=== PATIENT | male | born 1970 | race Caucasian/White ===

== ENCOUNTER 2020-11-30 08:41 | Outpatient (REF) | payer BC, SELFPAY ==
[2020-11-30 11:03] LABS: MANUAL DIFF FLAG NO
[2020-11-30 11:15] LABS: Basophils Absolute Auto 0.1 X10*3/uL (0.0-0.2); Basophils Percent Auto 1.1 % (0-2); Eosinophils Absolute Auto 0.3 X10*3/uL (0.0-0.4); Eosinophils Percent Auto 4.5 % (0-4); Glucose Urine UA NEG (NEG); Hematocrit 47.1 % (42-52); Hemoglobin 15.4 g/dl (14.0-18.0); Imm Gran Abs Auto 0.02 X10*3/uL (0.00-0.03); Imm Gran Pct Auto 0.3 % (0.0-0.4); Leukocyte Esterase Urine NEG (NEG); Lymphocytes Absolute Auto 2.1 X10*3/uL (1.2-4.9); Lymphocytes Percent Auto 33.1 % (20-40); Mean Corpuscular HGB Conc 32.7 g/dl (31.0-36.0); Mean Corpuscular Hemoglobin 31.2 pg (27.0-33.0); Mean Corpuscular Volume 95.5 fL (80-98); Monocytes Absolute Auto 0.6 X10*3/uL (0.1-1.2); Monocytes Percent Auto 9.4 % (2-11); Neutrophils Absolute Auto 3.3 X10*3/uL (2.0-8.3); Neutrophils Percent Auto 51.6 % (45-73); Nitrite Urine NEG (NEG); Platelet Count 221 X10*3/uL (160-400); Red Blood Count 4.93 X10*6/uL (4.60-5.80); Red Cell Distribution Width 13.9 % (11.0-16.0); Specific Gravity - Urine >= 1.030 (1.005-1.025); Urine Blood NEG (NEG); Urine Ketones NEG (NEG); Urine Protein NEG (NEG-TRACE); White Blood Count 6.4 X10*3/uL (4.8-10.8)
[2020-11-30 11:16] LABS: Appearance Urine CLOUDY; Color Urine YELLOW
[2020-11-30 12:03] LABS: Alanine Aminotransferase 35 U/L (0-40); Albumin Level 4.3 g/dL (3.5-5.0); Alkaline Phosphatase 116 U/L (39-117); Anion Gap 15 (12-20); Aspartate Amino Transferase 22 U/L (5-37); Bilirubin Total 0.5 mg/dL (0.0-1.0); Blood Urea Nitrogen 13 mg/dL (9-16); Calcium 9.6 mg/dL (8.4-10.2); Carbon Dioxide 24 mmol/L (22-29); Chloride 105 mmol/L (96-108); Cholesterol 242 mg/dL; Estimated Glomerular Filt Rate > 60; Glucose Fasting 85 mg/dL (60-99); HDL Cholesterol 49 mg/dL; LDL Cholesterol Calculated 141 mg/dl; Potassium 4.1 mmol/L (3.3-5.1); Sodium 140 mmol/L (135-145); Triglycerides 262 mg/dL
== END 2020-11-30 08:42 | disposition home or self-care (01) ==
LOC: HO.HMGCLDS 08:41
PROVIDERS: PCP Nurse Practitioner Family; Visit Provider Nurse Practitioner Family
DX: T24.309 Burn of third degree of unspecified site of unspecified lower limb, except ankle and foot (principal)
CPT/HCPCS: 36415; 80053; 80061; 81003; 84443; 85025

== ENCOUNTER → 2021-08-19 13:59 | Outpatient (BNVA) | payer OTHER, SELFPAY | PROVIDERS: PCP Nurse Practitioner Family; Referring Provider Nurse Practitioner Family; Visit Provider Nurse Practitioner | DX: Z12.11 Encounter for screening for malignant neoplasm of colon (principal) | CPT/HCPCS: 99202 ==

== ENCOUNTER 2021-12-09 07:58 | Outpatient (REF) | payer OTHER, SELFPAY ==
[2021-12-09 11:17] LABS: MANUAL DIFF FLAG NO
[2021-12-09 11:34] LABS: Basophils Absolute Auto 0.1 X10*3/uL (0.0-0.2); Basophils Percent Auto 0.9 % (0-2); Eosinophils Absolute Auto 0.2 X10*3/uL (0.0-0.4); Eosinophils Percent Auto 1.9 % (0-4); Hematocrit 46.7 % (42.0-52.0); Hemoglobin 16.2 g/dl (14.0-18.0); Imm Gran Abs Auto 0.02 X10*3/uL (0.00-0.03); Imm Gran Pct Auto 0.3 % (0.0-0.4); Lymphocytes Absolute Auto 2.7 X10*3/uL (1.2-4.9); Lymphocytes Percent Auto 34.9 % (20-40); Mean Corpuscular HGB Conc 34.7 g/dl (31.0-36.0); Mean Corpuscular Hemoglobin 33.5 pg (27.0-33.0); Mean Corpuscular Volume 96.5 fL (80.0-98.0); Mean Platelet Volume 10.3 fL (9.4-12.4); Monocytes Absolute Auto 0.7 X10*3/uL (0.1-1.2); Monocytes Percent Auto 8.6 % (2-11); Neutrophils Absolute Auto 4.2 x10*3/uL (2.0-8.3); Neutrophils Percent Auto 53.4 % (45-73); Platelet Count 205 X10*3/uL (160-400); Red Blood Count 4.84 X10*6/uL (4.60-5.80); Red Cell Distribution Width 12.6 % (11.0-16.0); White Blood Count 7.8 X10*3/uL (4.8-10.8)
[2021-12-09 11:40] LABS: Appearance Urine Clear; Color Urine Yellow; Glucose Urine UA Negative (Negative); Leukocyte Esterase Urine Negative (Negative); Nitrite Urine Negative (Negative); PH 5.5 (5.0-9.0); Urine Blood Negative (Negative); Urine Ketones Trace mg/dL (Negative); Urine Protein Negative (Neg-Trace)
[2021-12-09 12:11] LABS: Amphetamine Screen Urine Not Detected (Not Detect); Barbiturates, Urine Not Detected (Not Detect); Benzodiazepines Screen Urine Not Detected (Not Detect); Cannabinoid Screen Urine Not Detected (Not Detect); Cocaine Screen Urine Not Detected (Not Detect); Fentanyl, urine Not Detected (Not Detect); Opiate Screen Urine POSITIVE (Not Detect); Phencyclidine Screen Urine Not Detected (Not Detect)
[2021-12-09 12:29] LABS: Alanine Aminotransferase 45 U/L (0-40); Albumin Level 4.3 g/dL (3.5-5.0); Alkaline Phosphatase 125 U/L (39-117); Anion Gap 16 (12-20); Aspartate Amino Transferase 25 U/L (5-37); Bilirubin Total 0.6 mg/dL (0.0-1.0); Blood Urea Nitrogen 11 mg/dL (9-16); Calcium 9.4 mg/dL (8.4-10.2); Carbon Dioxide 25 mmol/L (22-29); Chloride 104 mmol/L (96-108); Cholesterol 224 mg/dL; Estimated Glomerular Filt Rate > 60; Glucose Fasting 121 mg/dL (60-99); HDL Cholesterol 48 mg/dL; LDL Cholesterol Calculated 149 mg/dl; Potassium 4.3 mmol/L (3.3-5.1); Sodium 141 mmol/L (135-145); Triglycerides 136 mg/dL
[2021-12-09 12:31] LABS: Prostate Specific Antigen Scr 0.32 ng/mL (<0.05-4.0); TSH reflex Free T4 3.48 uIU/mL (0.32-4.0)
[2021-12-15 07:30] LABS: Oxycodone, Ur 5382; Oxymorphone, Ur 1020
[2021-12-15 07:31] LABS: Noroxycodone, Ur 8506
[2021-12-15 07:32] LABS: Codeine, Ur NEGATIVE; Hydrocodone, Ur NEGATIVE; Hydromorphone, Ur NEGATIVE; Morphine, Ur NEGATIVE; Norhydrocodone, Ur NEGATIVE
== END 2021-12-09 07:59 | disposition home or self-care (01) ==
LOC: HO.HMGCLDS 07:58
PROVIDERS: PCP Nurse Practitioner Family; Visit Provider Nurse Practitioner Family
DX: Z02.83 Encounter for blood-alcohol and blood-drug test (principal); Z12.5 Encounter for screening for malignant neoplasm of prostate; I10 Essential (primary) hypertension; T24.309 Burn of third degree of unspecified site of unspecified lower limb, except ankle and foot; T31.30 Burns involving 30-39% of body surface with 0% to 9% third degree burns
CPT/HCPCS: 80053; 80061; 80307; 80364; 80365; 81003; 84153; 84443; 85025

== ENCOUNTER 2021-12-14 10:00 | Day surgery (SDC) | payer OTHER, SELFPAY ==
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
[2021-12-14 10:10] VITALS: BMI 30.5
[2021-12-14] MEDS: Lactated Ringers 1,000 ML 100 ML IVCONT (10:12)
[2021-12-14 10:14] VITALS: BP 145/97; PULSE 77; RESP 18; TEMP 36.2; O2SAT 97
--- NOTE | 2021-12-14 10:25 | MHC.SHP ---
Pre-Procedural Eval Section A Date of Service: 12/14/21 Section B Chief Complaint: screening colonoscopy Details of Present Illness: 51y.o at average risk for CRC here for a screening colo. Current smoker 1.5PPD x 40y. Occ etOH. Relevant Family History (Specify if Yes): No Relevant Social History: Tobacco Use Present Medications: see Short Stay Collaborative assessment Medical History: Significant History (HTN) History of Previous Operations: Relevant previous surgery/procedure and date(s) (Inguinal hernia repair) Allergies: Allergies Allergy/AdvReac Type Severity Reaction Status Date / Time No Known Allergies Allergy Verified 12/09/21 10:37 Review of Systems Review of Systems Comment: 10 point ROS negative except as noted above. Exam Surgical H&P Exam: Normal: HEENT, Normal: Heart, Normal: Lungs, Normal: Extremities, Normal: Abdomen, Normal: Skin and Normal: Neurological Plan Diagnosis/Plan: Unchanged I have reviewed the history and physical and performed a pertinent physical examination on my patient. No changes have occurred unless specified.
--- NOTE | 2021-12-14 10:35 | P.OP_ITS ---
Operative Note Operative Note Date of Service: 12/14/21 Narrative: Procedure: Colonoscopy Indication: Screening Endoscopist: Aubree Mclean MD Anesthesia Provider: Dr Fela Estrada MD Anesthesia type: MAC Instrument: Olympus [id number]-H190L Consent: Indication, risks vs benefits, and alternatives were discussed with the patient who gave written informed consent to proceed. Monitoring: EKG, pulse, pulse oximetry and blood pressure were monitored throughout the procedure. Medications: Please see anesthesia flowsheet. Procedure: The patient was brought to the procedure room and placed in the left lateral decubitus position. IV medications were administered by the anesthesia provider in attendance. A digital rectal exam was performed which was normal. The colonoscope was then inserted through the anus and advanced through the colon to the cecum at 70 cm,and terminal ileum. Mucosa was carefully examined under high definition white light as the instrument was slowly withdrawn in a retrograde panoramic fashion. Retroflexion was performed in rectum. The procedure was not difficult. There were no immediate obvious complications. The quality of the prep was BBPS: 2+2+3 = adequate Withdrawal time 21 minutes. Limitations: No limitations. Findings: Mucosa: Normal to cecum and terminal ileum. Protruding lesions: * 1 sessile polyp of size 8 mm in cecum. The polyp was completely removed and retrieved. * 1 sessile polyp of size 2 mm in ascending colon. The polyp was completely removed and retrieved. * 3 sessile polyp of size 3-7 mm in sigmoid colon. The polyp was completely removed and retrieved. * Medium external hemorrhoids without stigmata of recent bleeding. Impression: 1. Normal colon mucosa 2. Total of 5 polyps removed from cecum, ascending and sigmoid colon. 3. External hemorrhoids Recommendations: - Follow path results. - Repeat colonoscopy in 3 years if all the polyps are adenomas.
[2021-12-14 11:20] VITALS: BP 111/67; PULSE 76; RESP 16; TEMP 36.4; O2SAT 99
[2021-12-14 11:35] VITALS: BP 116/75; PULSE 71; RESP 18; TEMP 36.4; O2SAT 97
== END 2021-12-14 11:54 | disposition home or self-care (01) ==
PROVIDERS: PCP Nurse Practitioner Family; Visit Provider Internal Medicine
PROC: 0DJD8ZZ Inspection of Lower Intestinal Tract, Via Natural or Artificial Opening Endoscopic (ICD-10-PCS; CPT 45378; principal; 2021-12-14 11:00)
DX: Z12.11 Encounter for screening for malignant neoplasm of colon (principal); D12.0 Benign neoplasm of cecum; D12.2 Benign neoplasm of ascending colon; D12.5 Benign neoplasm of sigmoid colon; K64.8 Other hemorrhoids; I10 Essential (primary) hypertension; E78.00 Pure hypercholesterolemia, unspecified; F17.210 Nicotine dependence, cigarettes, uncomplicated; Z79.899 Other long term (current) drug therapy
CPT/HCPCS: 45385; 88305

== ENCOUNTER → 2021-12-28 13:05 | Outpatient (BNVA) | payer OTHER, SELFPAY | PROVIDERS: PCP Nurse Practitioner Family; Visit Provider Nurse Practitioner | DX: D12.6 Benign neoplasm of colon, unspecified (principal) | CPT/HCPCS: 99212 ==

== ENCOUNTER 2022-01-11 08:56 | Outpatient (REF) | payer OTHER, SELFPAY ==
--- NOTE | ~2022-01-11 | US_ITS ---
EXAMINATION: US ABDOMEN COMPLETE CLINICAL INFORMATION: Abnormal levels or other serum enzymes. COMPARISON: None TECHNIQUE: Real-time imaging of the abdominal viscera. FINDINGS: PANCREAS: Normal. No focal mass or peripancreatic inflammatory change. ABDOMINAL AORTA: Not visualized. INFERIOR VENA CAVA: Visualized portions are normal. LIVER: The liver is normal in size. The liver contour is normal. There is homogeneously increased echogenicity consistent with fatty infiltration. No focal hepatic lesion. There is no intrahepatic biliary duct dilatation seen. GALLBLADDER: There are numerous polyps present measuring up to 6 mm in diameter. The gallbladder wall measures up to 4 mm in diameter without fluid within the wall. No pericholecystic inflammatory change. COMMON BILE DUCT: Normal in caliber measuring 0.3 cm in diameter. RIGHT KIDNEY: Normal. No hydronephrosis. No renal calculi or focal parenchymal lesions. The kidney measures 12.2 cm in maximum dimension. LEFT KIDNEY: Normal. No hydronephrosis. No renal calculi or focal parenchymal lesions. The kidney measures 13.0 cm in maximum dimension. SPLEEN: Normal. The spleen measures 10.7 cm in maximum dimension. FREE FLUID: None. US/US abdomen complete IMPRESSION: Gallbladder polyps. No evidence of acute cholecystitis. Fatty infiltration of the liver.
== END 2022-01-11 08:57 | disposition home or self-care (01) ==
LOC: HO.HMGCX 08:56
PROVIDERS: PCP Nurse Practitioner Family; Visit Provider Nurse Practitioner Family
DX: R74.8 Abnormal levels of other serum enzymes (principal)
CPT/HCPCS: 76700

== ENCOUNTER → 2022-06-29 08:43 | Outpatient (BNVA) | payer OTHER, SELFPAY | PROVIDERS: PCP Nurse Practitioner Family; Visit Provider Psychiatry & Neurology Neurology | DX: Z13.89 Encounter for screening for other disorder (principal) ==

== ENCOUNTER → 2022-08-01 13:06 | Outpatient (BNVA) | payer OTHER, SELFPAY | PROVIDERS: PCP Nurse Practitioner Family; Visit Provider Internal Medicine | DX: Z13.89 Encounter for screening for other disorder (principal) ==

== ENCOUNTER 2022-10-11 14:28 | Outpatient (REF) | payer OTHER, SELFPAY ==
--- NOTE | ~2022-10-11 | MR_ITS ---
EXAMINATION: MR LUMBAR SPINE WITHOUT CONTRAST CLINICAL INFORMATION: Leg pain. COMPARISON: None available. TECHNIQUE: MRI of the lumbar spine was obtained using routine sequences without contrast. FINDINGS: Normal anatomic alignment. Moderate degenerative disc disease at L5-S1. Mild degenerative disc disease from L1-L5. There is a T2 hyperintense annular fissure at L5-S1. Associated mild mixed Modic type discogenic endplate changes including minimal Modic type I discogenic edema at L1-L2 and L2-L3. Mild marrow edema within the posterior elements of L4 and L5 consistent with degenerative stress reaction. No additional suspicious marrow edema. The vertebral body heights are well-maintained. The conus medullaris terminates at the level of L1-L2. The distal spinal cord is normal in appearance. Minimal subcutaneous edema within the soft tissues of the back below the level of L2. No additional significant abnormalities of the paraspinal musculature. Limited evaluation of the intra-abdominal structures without significant abnormalities. The abdominal aorta is of normal contour and caliber. AXIAL SPINAL LEVELS: L1-L2: Shallow diffuse disc bulge. There is mild bilateral facet joint arthropathy. There is no neural foraminal stenosis. There is no spinal canal stenosis. L2-L3: Mild diffuse disc bulge. There is mild bilateral facet joint arthropathy. There is mild bilateral neural foraminal stenosis. There is no spinal canal stenosis. L3-L4: Shallow diffuse disc bulge. There is moderate left and mild right facet joint arthropathy. There is mild bilateral neural foraminal stenosis. There is narrowing of the subarticular zones with no overt spinal canal stenosis centrally exacerbated by prominent dorsal epidural lipomatous tissue. L4-L5: Mild diffuse disc bulge. There is moderate right worse than left facet joint arthropathy. There is moderate right and mild left neural foraminal stenosis. There is narrowing of the subarticular zones with mild spinal canal stenosis centrally exacerbated by prominent dorsal epidural lipomatous tissue. L5-S1: Mild diffuse disc bulge with superimposed small central disc protrusion. There is moderate bilateral facet joint arthropathy. There is moderate bilateral neural foraminal stenosis. There is narrowing of the subarticular zones with no overt spinal canal stenosis centrally. MR/MR lumbar spine wo con IMPRESSION: Mild to moderate multilevel degenerative spondyloarthropathy of the lumbar spine as described in detail above. Most notably, there is mild spinal canal stenosis at L4-L5. Narrowings of the subarticular zones from L3-S1. Moderate neural foraminal stenoses at L4-L5 and L5-S1.
== END 2022-10-11 14:29 | disposition home or self-care (01) ==
LOC: HO.MRI 14:28
PROVIDERS: PCP Nurse Practitioner Family; Visit Provider Internal Medicine
DX: M79.604 Pain in right leg (principal); M79.605 Pain in left leg
CPT/HCPCS: 72148

== ENCOUNTER 2022-10-19 11:10 | Day surgery (SDC) | payer OTHER, SELFPAY ==
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
--- NOTE | ~2022-10-19 | FL_ITS ---
EXAMINATION: XR FLUOROSCOPY WITH IMAGES CLINICAL INFORMATION: Spinal cord stimulation trial. STIM trial. COMPARISON: None available. TECHNIQUE: Fluoroscopy Supervised By: Dr. Willian Carr. Fluoroscopy Time: 2.2 minutes. Cumulative Dose: 63.1 mGy. DAP: 8.09 Gycm2. Images: 3. FINDINGS: There are 3 digital images obtained revealing a posterior electrode positioned along the superior endplate of T9 and second in the throat and along the T11 superior endplate vertebra.. FL/FL guidance in OR IMPRESSION: Fluoroscopy was provided to referring physician for pain management.
[2022-10-19 11:35] VITALS: BMI 32.8
[2022-10-19 11:54] VITALS: BP 137/99; PULSE 86; RESP 16; TEMP 36.1; O2SAT 96
[2022-10-19] MEDS: Lactated Ringers 1,000 ML 100 ML IVCONT (12:04)
[2022-10-19 12:07] LABS: Glucose, Whole Blood 154 mg/dL (60-115)
[2022-10-19 13:31] LABS: MRSA Nasal PCR NEGATIVE (Negative); SA Nasal PCR NEGATIVE (Negative)
[2022-10-19 14:56] VITALS: BP 128/73; PULSE 79; RESP 16; TEMP 36.7; O2SAT 98
[2022-10-19 15:25] VITALS: BP 147/79; PULSE 79; RESP 16; TEMP 36.4; O2SAT 98
--- NOTE | 2022-10-19 15:52 | MHC.SHP ---
Pre-Procedural Eval Section A Date of Service: 10/19/22 The patient is an INPATIENT: No Changes since office visit: Yes Patient answered all questions The History & Physical has been completed within 30 days and I have reviewed it.: Yes Section B Chief Complaint: Complex regional pain syndrome I of lower limb, bi Relevant Family History (Specify if Yes): No Relevant Social History: Other (specify) Present Medications: see Short Stay Collaborative assessment Medical History: Significant History History of Previous Operations: No relevant previous surgery Allergies: Allergies Allergy/AdvReac Type Severity Reaction Status Date / Time No Known Allergies Allergy Verified 08/01/22 13:11 Review of Systems Sugical H&P ROS: Negative: Constitution, Cardiovascular and Respiratory and Yes, Specify: Integumentary (Lower extremity swelling, unchanged) Exam Surgical H&P Exam: Normal: HEENT, Normal: Heart and Normal: Lungs Plan Diagnosis/Plan: Unchanged I have reviewed the history and physical and performed a pertinent physical examination on my patient. No changes have occurred unless specified. Proceed with lumbar spinal cord stimulation trial. Time Spent With Patient Time: Total time managing care of this patient today ____ minutes.
--- NOTE | 2022-10-19 15:53 | PM.OP ---
Brief Operative Note Date of Service: 10/19/22 Pre-op diagnosis: Complex regional pain syndrome of the lower extremities Post-op diagnosis: same Procedure: Lumbar spinal cord stimulation trial Implants: Nevro HFX spinal cord stimulation trial leads Surgeon: Willian Carr MD Anesthesia: MAC and local Was an Paper Testing Supervisor used for this Procedure?: No Estimated blood loss (mL): 3 Pathology: none sent Condition: stable Disposition: PACU
--- NOTE | 2022-10-19 15:54 | W.PM.OPN ---
Operative Note Operative Note Date of Service: 10/19/22 Narrative: Percutaneous Spinal Cord Stimulator Trial, Lumbar After obtaining written consent, pre-procedure blood pressure and heart rate were recorded and are in the nursing record for review. A peripheral IV was started. Antibiotics, cefazolin 2 gram, were given intraoperatively. The patient was placed in a prone position.? The patient was sedated by the anesthesiologist. The thoracolumbar area was widely prepped with ChloraPrep, allowed to dry and draped in sterile fashion. Fluoroscopy was used to identify the L1/L2 interlaminar spaces and appropriate needle insertion sites. The skin and subcutaneous tissue was anesthetized with 0.5% lidocaine mixed with 0.25% bupivacaine. Two separate 14 gauge coude epidural needles were then advanced from the skin in a paramedian approach to the epidural space opening at L1/L2 interspace, where loss of resistance was found using air. No paresthesias were elicited with needle placement. No CSF or heme was present upon needle placement. A guide wire was then used to confirm placement into the epidural space at each level under live fluoroscopy. A 1x8 stimulator lead wire was then threaded to the top of T9 in the midline position. The other lead was placed/tacked the bottom electrode was at the top of T12 and a slight right parasagittal position. The leads advanced dorsally.?The needles were then completely removed under live fluoroscopy. The stimulator wires were then secured with 0 Tycron sutures and sutured to the skin. The needle entry site was closed off exofen. The leads were reinforced in position using Steri-Strips and Mastisol. The site was covered with gauze and Tegaderm. The patient tolerated the procedure well and no complications were encountered. Following the procedure the patient's vital signs were stable. The patient was discharged home in good condition after being given discharge instructions. Time Out: Immediately prior to the procedure, the following was verbally confirmed that there is a signed consent form and that the correct patient, planned procedure, site and side are consistent with documentation and that necessary equipment and/or blood products are available prior to the start of the case. Complications: none EBL: <5 cc
== END 2022-10-19 15:31 | disposition home or self-care (01) ==
PROVIDERS: Registered Nurse Emergency; PCP Nurse Practitioner Family; Visit Provider Internal Medicine
PROC: (CPT 63650; principal; 2022-10-19 12:50)
DX: G90.523 Complex regional pain syndrome I of lower limb, bilateral (principal); I10 Essential (primary) hypertension
CPT/HCPCS: 63650 ×2; 82947; 87640; 87641; C1897; J0690; J2250

== ENCOUNTER → 2022-10-19 11:10 | Outpatient (BNV) | payer OTHER, SELFPAY | PROVIDERS: PCP Nurse Practitioner Family; Visit Provider Internal Medicine | DX: Z00.00 Encounter for general adult medical examination without abnormal findings (principal) | CPT/HCPCS: 63650 ==

== ENCOUNTER 2022-10-25 09:25 | Outpatient (AMB) | payer OTHER, SELFPAY ==
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
[2022-10-25 09:32] VITALS: BP 157/93; PULSE 83; O2SAT 95; BMI 33.3
== END 2022-10-25 10:02 | disposition home or self-care (01) ==
PROVIDERS: PCP Nurse Practitioner Family; Visit Provider Nurse Practitioner Family
DX: M79.606 Pain in leg, unspecified (principal); G89.4 Chronic pain syndrome
CPT/HCPCS: 99214

== ENCOUNTER → 2022-10-25 09:25 | Outpatient (BNVA) | payer OTHER, SELFPAY | PROVIDERS: PCP Nurse Practitioner Family; Visit Provider Nurse Practitioner Family ==

== ENCOUNTER 2022-12-21 11:01 | Day surgery (SDC) | payer OTHER, SELFPAY ==
[2022-12-19 09:47] VITALS: BMI 33.2
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
--- NOTE | ~2022-12-21 | FL_ITS ---
EXAMINATION: XR FLUOROSCOPY WITH IMAGES CLINICAL INFORMATION: Spinal cord stimulation implant. COMPARISON: None available. TECHNIQUE: Fluoroscopy Supervised By: Dr. Willian Carr. Fluoroscopy Time: 2.0 minutes. Cumulative Dose: 35.3 mGy. DAP: 5.49 Gycm2. Images: 5. FINDINGS: Images demonstrate spinal stimulator lower thoracic and upper lumbar spinal canal with tip at the T9 vertebral body level. Battery right pelvis. FL/FL guidance in OR IMPRESSION: Fluoroscopy guidance for spinal cord stimulation implant.
[2022-12-21 11:37] VITALS: BMI 33.2
[2022-12-21 11:47] VITALS: BP 142/85; PULSE 88; RESP 18; TEMP 36.3; O2SAT 95
[2022-12-21] MEDS: Lactated Ringers 1,000 ML 100 ML IVCONT (12:03)
[2022-12-21 13:44] LABS: MRSA Nasal PCR NEGATIVE (Negative); SA Nasal PCR NEGATIVE (Negative)
--- NOTE | 2022-12-21 16:24 | MHC.SHP ---
Pre-Procedural Eval Section A Date of Service: 12/21/22 The patient is an INPATIENT: No Changes since office visit: Yes Patient answered all questions The History & Physical has been completed within 30 days and I have reviewed it.: Yes Section B Chief Complaint: Complex regional pain syndrome I of lower limb, Relevant Family History (Specify if Yes): No Relevant Social History: None Present Medications: see Short Stay Collaborative assessment Medical History: No relevant PMH History of Previous Operations: No relevant previous surgery Allergies: Allergies Allergy/AdvReac Type Severity Reaction Status Date / Time No Known Allergies Allergy Verified 10/25/22 09:31 Review of Systems Sugical H&P ROS: Negative: Constitution, Cardiovascular and Respiratory Exam Surgical H&P Exam: Normal: HEENT, Normal: Heart and Normal: Lungs Plan Diagnosis/Plan: Unchanged I have reviewed the history and physical and performed a pertinent physical examination on my patient. No changes have occurred unless specified. Time Spent With Patient Time: Total time managing care of this patient today ____ minutes.
--- NOTE | 2022-12-21 16:25 | P.BOP_ITS ---
Brief Operative Note Date of Service: 12/21/22 Pre-op diagnosis: Complex regional pain syndrome of the lower extremities Post-op diagnosis: same Procedure: Lumbar spinal cord stimulator implant Implants: Nevro HFX omnia spinal cord stimulator system Surgeon: Willian Carr MD Anesthesia: MAC Was an Entertainer [employer] Comic used for this Procedure?: No Estimated blood loss (mL): 10 Pathology: none sent Condition: stable Disposition: PACU
--- NOTE | 2022-12-21 16:27 | W.PM.OPN ---
Operative Note Operative Note Date of Service: 12/21/22 Narrative: Lumbar SCS Implant After proper identification, the patient was brought to the operating room. After prone positioning, patient was sedated under anesthesia. Care was taken during positioning to protect and pad all pressure points. Cefazolin 2gm was given as preoperative antibiotic prophylaxis. The back was prepped and draped in the usual sterile fashion using Chloroprep. The fluoroscope unit was sterilely draped and brought into field, the vertebral target and the L1/L2 interspace was localized with fluoroscopy after the skin was anesthetized with 0.25% bupivicaine with 1:200,000 epinephrine and 1% lidocaine using a 25-gauge needle. A 6 cm incision was then made in the midline back with a 15 blade between the L2 and L3 spinous processes. Electrocautery was used to dissect down to the prevertebral fascia. Two 14-gauge introducer Epimed needles were advanced using AP and contralateral oblique fluoroscopy views to the target interspace on either side of the inferior spinous process. Upon loss of resistance, the left electrode was threaded up to the top of T9 vertebral body. The right electrode was threaded such that the bottom electrode was at the top of T12 vertebral body. With the needles covering the leads, we placed 2 sets of Tycron sutures per electrode for the anchor stitches. We then backed out the needle under live fluoroscopy, verifying that the electrodes were in the correct position and we then used the locking anchors to secure the electrodes down to the prevertebral fascia, tying them down with the Tycron sutures. At this point, a pocket for the generator was made in the left iliac fossa. With the skin and subcutaneous tissues anesthetized with 0.25% bupivicaine with 1:200,000 epinephrine and 1% lidocaine, a horizontal 2-inch incision was made using a 15 blade and combination of sharp dissection, blunt dissection and electrocautery was used. A pocket was created about half an inch below the skin. The pocket was then irrigated with normal saline containing vancomycin. Hemostasis was attained with electrocautery. We then tunneled the electrodes from the back into the pocket using the tunneling device. The electrodes were then connected to the generator. A single Tycron suture was thrown across the floor of the pocket and through the medial anchor hold of the generator. After interrogation with impedance check the generator was placed into the subcutaneous pocket and the anchoring suture tied. Care was taken not to get fluid in the generator connector block. The excess lead was enclosed beneath the generator creating a loop of strain relief as well. The neurostimulator generator was placed parallel to the skin at a depth of half an inch along for successful telemetry and impedence. The pocket was reirrigated and closed with the generator name facing out. Final electronic analysis was performed to ensure proper functioning. Positioning of the leads were rechecked and confirmed with fluoroscopy and images saved. Both incisions were closed with a deep layer of 2-0 Vicryl sutures, the deep dermal layer with 3-0 Vicryl sutures, simple interrupted and a running 4-0 Monocryl for the subcutaneous layer. We then secured the incision with Dermabond, steristrips, telfa and tegaderm over both incisions. The patient tolerated the procedure well. The patient was then flipped back into the supine position, woken up and brought to the PACU in stable condition. Complications: None EBL: 10 mL
[2022-12-21 16:30] VITALS: BP 156/107; PULSE 89; RESP 14; TEMP 36.1; O2SAT 96
[2022-12-21 16:45] VITALS: BP 159/111; PULSE 86; RESP 16; TEMP 36.2; O2SAT 96
[2022-12-21] MEDS: Acetaminophen 1,000 MG/100 ML PIGGYBACK 400 MG IV (16:47)
[2022-12-21 16:57] VITALS: BP 156/96; PULSE 88; RESP 16; O2SAT 96
== END 2022-12-21 17:09 | disposition home or self-care (01) ==
PROVIDERS: Registered Nurse Emergency; PCP Nurse Practitioner Family; Visit Provider Internal Medicine
PROC: (CPT 63685; principal; 2022-12-21 12:30)
DX: G90.523 Complex regional pain syndrome I of lower limb, bilateral (principal); G89.4 Chronic pain syndrome; G62.9 Polyneuropathy, unspecified; M79.662 Pain in left lower leg; M79.661 Pain in right lower leg; M25.572 Pain in left ankle and joints of left foot; M25.571 Pain in right ankle and joints of right foot; Z87.828 Personal history of other (healed) physical injury and trauma; Z94.5 Skin transplant status; I10 Essential (primary) hypertension; E78.00 Pure hypercholesterolemia, unspecified; K76.0 Fatty (change of) liver, not elsewhere classified; Z79.899 Other long term (current) drug therapy; F17.210 Nicotine dependence, cigarettes, uncomplicated
CPT/HCPCS: 63685; 63650 ×2; 87640; 87641; C1713; C1778; C1787; J0131; J0690; J2250; J2795; J3010; J3370

== ENCOUNTER → 2022-12-21 11:01 | Outpatient (BNV) | payer OTHER, SELFPAY | PROVIDERS: PCP Nurse Practitioner Family; Visit Provider Internal Medicine | DX: G90.523 Complex regional pain syndrome I of lower limb, bilateral (principal) | CPT/HCPCS: 63650; 63685 ==

== ENCOUNTER 2022-12-27 09:26 | Outpatient (AMB) | payer OTHER, SELFPAY ==
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
[2022-12-27 09:33] VITALS: BP 150/87; PULSE 84; O2SAT 97; BMI 33.2
== END 2022-12-27 09:40 | disposition home or self-care (01) ==
PROVIDERS: PCP Nurse Practitioner Family; Visit Provider Nurse Practitioner Family
DX: M79.606 Pain in leg, unspecified (principal); G89.4 Chronic pain syndrome
CPT/HCPCS: 99024

== ENCOUNTER → 2022-12-27 09:26 | Outpatient (BNVA) | payer OTHER, SELFPAY | PROVIDERS: PCP Nurse Practitioner Family; Visit Provider Nurse Practitioner Family ==

== ENCOUNTER 2023-01-03 11:00 | Outpatient (AMB) | payer OTHER, SELFPAY ==
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
[2023-01-03 11:22] VITALS: BP 150/86; PULSE 87; O2SAT 98; BMI 33.1
== END 2023-01-03 11:34 | disposition home or self-care (01) ==
PROVIDERS: PCP Nurse Practitioner Family; Visit Provider Nurse Practitioner Family
DX: M79.606 Pain in leg, unspecified (principal); G89.4 Chronic pain syndrome
CPT/HCPCS: 99213

== ENCOUNTER → 2023-01-03 11:00 | Outpatient (BNVA) | payer OTHER, SELFPAY | PROVIDERS: PCP Nurse Practitioner Family; Visit Provider Nurse Practitioner Family ==

== ENCOUNTER 2023-02-27 11:24 | Outpatient (AMB) | payer OTHER, SELFPAY ==
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
[2023-02-27 11:46] VITALS: BP 112/74; PULSE 69; O2SAT 96; BMI 32.4
== END 2023-02-27 12:23 | disposition home or self-care (01) ==
PROVIDERS: PCP Nurse Practitioner Family; Visit Provider Nurse Practitioner Family
DX: Z00.00 Encounter for general adult medical examination without abnormal findings (principal); Z12.5 Encounter for screening for malignant neoplasm of prostate
CPT/HCPCS: 99396

== ENCOUNTER 2023-06-19 08:12 | Outpatient (REF) | payer OTHER, SELFPAY ==
[2023-06-19 11:07] LABS: Appearance Urine Clear; Color Urine Dark Yellow; Glucose Urine UA Negative (Negative); Leukocyte Esterase Urine Negative (Negative); Nitrite Urine Negative (Negative); PH 5.5 (5.0-9.0); Urine Blood Negative (Negative); Urine Ketones Negative (Negative); Urine Protein Negative (Neg-Trace)
[2023-06-19 11:10] LABS: MANUAL DIFF FLAG NO
[2023-06-19 11:29] LABS: Basophils Absolute Auto 0.1 X10*3/uL (0.0-0.2); Basophils Percent Auto 1.2 % (0-2); Eosinophils Absolute Auto 0.1 X10*3/uL (0.0-0.4); Eosinophils Percent Auto 1.9 % (0-4); Hematocrit 50.5 % (42.0-52.0); Hemoglobin 17.2 g/dl (14.0-18.0); Imm Gran Abs Auto 0.02 X10*3/uL (0.00-0.03); Imm Gran Pct Auto 0.3 % (0.0-0.4); Lymphocytes Absolute Auto 2.7 X10*3/uL (1.2-4.9); Mean Corpuscular HGB Conc 34.1 g/dl (31.0-36.0); Mean Corpuscular Hemoglobin 32.8 pg (27.0-33.0); Mean Corpuscular Volume 96.4 fL (80.0-98.0); Mean Platelet Volume 9.8 fL (9.4-12.4); Monocytes Absolute Auto 0.5 X10*3/uL (0.1-1.2); Monocytes Percent Auto 7.9 % (2-11); Neutrophils Absolute Auto 2.5 x10*3/uL (2.0-8.3); Neutrophils Percent Auto 42.7 % (45-73); Platelet Count 231 X10*3/uL (160-400); Red Blood Count 5.24 X10*6/uL (4.60-5.80); Red Cell Distribution Width 12.1 % (11.0-16.0); White Blood Count 5.9 X10*3/uL (4.8-10.8)
[2023-06-19 11:52] LABS: Alanine Aminotransferase 44 U/L (0-40); Alkaline Phosphatase 137 U/L (39-117); Anion Gap 13 (12-20); Aspartate Amino Transferase 24 U/L (5-37); Bilirubin Total 0.6 mg/dL (0.0-1.0); Blood Urea Nitrogen 8 mg/dL (9-16); Carbon Dioxide 26 mmol/L (22-29); Chloride 105 mmol/L (96-108); Cholesterol 183 mg/dL (<200); Estimated Glomerular Filt Rate > 60; Glucose Fasting 143 mg/dL (60-99); HDL Cholesterol 37 mg/dL (>40); LDL Cholesterol Calculated 112 mg/dL (<100); Potassium 3.9 mmol/L (3.3-5.1); Sodium 140 mmol/L (135-145); Triglycerides 170 mg/dL (<150)
[2023-06-19 11:54] LABS: Prostate Specific Antigen Scr 0.39 ng/mL (<0.05-4.0)
[2023-06-19 11:59] LABS: TSH reflex Free T4 3.94 uIU/mL (0.32-4.0)
== END 2023-06-19 08:13 | disposition home or self-care (01) ==
LOC: HO.HMGCLDS 08:12
PROVIDERS: PCP Nurse Practitioner Family; Visit Provider Nurse Practitioner Family
DX: Z00.00 Encounter for general adult medical examination without abnormal findings (principal); Z12.5 Encounter for screening for malignant neoplasm of prostate; Z13.6 Encounter for screening for cardiovascular disorders
CPT/HCPCS: 36415; 80053; 80061; 81003; 84153; 84443; 85025

== ENCOUNTER 2023-08-08 10:29 | Outpatient (AMB) | payer OTHER, SELFPAY ==
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
[2023-08-08 10:49] VITALS: BP 130/82; PULSE 78; O2SAT 98; BMI 32.8
== END 2023-08-08 11:36 | disposition home or self-care (01) ==
PROVIDERS: PCP Nurse Practitioner Family; Visit Provider Nurse Practitioner Family
DX: T31.30 Burns involving 30-39% of body surface with 0% to 9% third degree burns (principal); M79.606 Pain in leg, unspecified; R73.01 Impaired fasting glucose; R74.8 Abnormal levels of other serum enzymes; F17.200 Nicotine dependence, unspecified, uncomplicated
CPT/HCPCS: 99213

== ENCOUNTER 2024-03-12 09:12 | Outpatient (REF) | payer OTHER, SELFPAY ==
[2024-03-12 13:02] LABS: MANUAL DIFF FLAG NO
[2024-03-12 13:09] LABS: Basophils Absolute Auto 0.1 X10*3/uL (0.0-0.2); Basophils Percent Auto 1.1 % (0-2); Eosinophils Absolute Auto 0.1 X10*3/uL (0.0-0.4); Eosinophils Percent Auto 1.2 % (0-4); Hemoglobin 17.2 g/dl (14.0-18.0); Imm Gran Abs Auto 0.03 X10*3/uL (0.00-0.03); Imm Gran Pct Auto 0.4 % (0.0-0.4); Mean Corpuscular HGB Conc 34.4 g/dl (31.0-36.0); Mean Corpuscular Hemoglobin 32.6 pg (27.0-33.0); Mean Corpuscular Volume 94.9 fL (80.0-98.0); Mean Platelet Volume 10.2 fL (9.4-12.4); Monocytes Absolute Auto 0.6 X10*3/uL (0.1-1.2); Monocytes Percent Auto 6.8 % (2-11); Neutrophils Absolute Auto 5.8 x10*3/uL (2.0-8.3); Neutrophils Percent Auto 67.5 % (45-73); Platelet Count 196 X10*3/uL (160-400); Red Blood Count 5.27 X10*6/uL (4.60-5.80); White Blood Count 8.6 X10*3/uL (4.8-10.8)
[2024-03-12 13:20] LABS: Appearance Urine Turbid; Color Urine Yellow; Glucose Urine UA Negative (Negative); Leukocyte Esterase Urine Negative (Negative); Nitrite Urine Negative (Negative); PH 5.5 (5.0-9.0); Specific Gravity - Urine >= 1.030 (1.005-1.025); Urine Blood Negative (Negative); Urine Ketones Negative (Negative); Urine Protein Negative (Neg-Trace)
[2024-03-12 13:33] LABS: Alanine Aminotransferase 46 U/L (0-40); Albumin Level 4.2 g/dL (3.5-5.0); Alkaline Phosphatase 109 U/L (39-117); Anion Gap 14 (12-20); Aspartate Amino Transferase 29 U/L (5-37); Bilirubin Total 0.7 mg/dL (0.0-1.0); Blood Urea Nitrogen 9 mg/dL (9-16); Calcium 8.8 mg/dL (8.4-10.2); Carbon Dioxide 25 mmol/L (22-29); Chloride 105 mmol/L (96-108); Cholesterol 175 mg/dL (<200); Estimated Glomerular Filt Rate > 60; Glucose Fasting 144 mg/dL (60-99); HDL Cholesterol 43 mg/dL (>40); Iron 190 mcg/dL (45-160); LDL Cholesterol Calculated 105 mg/dL (<100); Percent Iron Saturation 70 % (15-50); Potassium 4.2 mmol/L (3.3-5.1); Sodium 140 mmol/L (135-145); Total Iron Binding Capacity 272 mcg/dL (228-428); Triglycerides 136 mg/dL (<150); Unsaturated Iron Binding 82 ug/dL
[2024-03-12 13:36] LABS: Ferritin 318 ng/mL (20-250); TSH reflex Free T4 2.04 uIU/mL (0.32-4.0)
[2024-03-12 13:37] LABS: Estimated Average Glucose 146 mg/dL; Hemoglobin A1C 211.1909 umol/L; Hemoglobin A1c % 6.7 % (<6.0); Total Hemoglobin (HGBA1C) 4253.6497 umol/L
[2024-03-12 13:50] LABS: Folate 4.7 ng/mL (> or = 4.0); Vitamin B12 507 pg/mL (200-900)
[2024-03-12 13:56] LABS: Gamma Glutamyl Transpeptidase 45 U/L (11-51)
[2024-03-17 13:14] LABS: Testosterone, Total 451 ng/dL (250-1100)
[2024-03-18 19:13] LABS: Alk.Phos Iso. Macrohepatic 0 % (<=0); Alk.Phos Isoenzymes Bone 23 % (28-66); Alk.Phos Isoenzymes Intest 16 % (1-24); Alk.Phos Isoenzymes Liver 61 % (25-69); Alk.Phos Isoenzymes Placental 0 % (<=0); Alk.Phos Isoenzymes Total 110 U/L (35-144)
== END 2024-03-12 09:13 | disposition home or self-care (01) ==
LOC: HO.HMGCLDS 09:12
PROVIDERS: PCP Nurse Practitioner Family; Visit Provider Nurse Practitioner Family
DX: E83.19 Other disorders of iron metabolism (principal); R79.89 Other specified abnormal findings of blood chemistry; T24.309 Burn of third degree of unspecified site of unspecified lower limb, except ankle and foot; T31.30 Burns involving 30-39% of body surface with 0% to 9% third degree burns; E11.9 Type 2 diabetes mellitus without complications; R35.1 Nocturia; H61.23 Impacted cerumen, bilateral; F17.210 Nicotine dependence, cigarettes, uncomplicated
CPT/HCPCS: 36415; 69209; 80053; 80061; 81003; 82607; 82728; 82746; 82977; 83036; 83540; 84080; 84402; 84403; 84443; 85025; 96127

== ENCOUNTER 2024-03-12 15:25 | Outpatient (AMB) | payer OTHER, SELFPAY ==
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
[2024-03-12 15:43] VITALS: BP 130/80; PULSE 76; O2SAT 98; BMI 31.9
== END 2024-03-12 17:00 | disposition home or self-care (01) ==
PROVIDERS: PCP Nurse Practitioner Family; Visit Provider Nurse Practitioner Family
DX: Z00.00 Encounter for general adult medical examination without abnormal findings (principal); E83.19 Other disorders of iron metabolism; E11.9 Type 2 diabetes mellitus without complications; T24.309 Burn of third degree of unspecified site of unspecified lower limb, except ankle and foot; T31.30 Burns involving 30-39% of body surface with 0% to 9% third degree burns; R35.1 Nocturia; F17.200 Nicotine dependence, unspecified, uncomplicated; H61.22 Impacted cerumen, left ear

== ENCOUNTER → 2024-04-18 14:27 | Outpatient (BNVA) | payer OTHER, SELFPAY | PROVIDERS: PCP Nurse Practitioner Family ==

== ENCOUNTER 2024-05-13 12:51 | Outpatient (AMB) | payer OTHER, SELFPAY ==
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
== END 2024-05-13 14:11 | disposition home or self-care (01) ==
PROVIDERS: PCP Nurse Practitioner Family; Visit Provider Nurse Practitioner Family
DX: R35.1 Nocturia (principal); N39.43 Post-void dribbling; R39.12 Poor urinary stream; Z13.9 Encounter for screening, unspecified
CPT/HCPCS: 99204

== ENCOUNTER → 2024-05-13 12:51 | Outpatient (BNVA) | payer OTHER, SELFPAY | PROVIDERS: PCP Nurse Practitioner Family; Visit Provider Nurse Practitioner Family | DX: R35.1 Nocturia (principal); N39.43 Post-void dribbling; R39.12 Poor urinary stream | CPT/HCPCS: 51798; 81003 ==

== ENCOUNTER 2024-05-31 08:42 | Outpatient (REF) | payer OTHER, SELFPAY ==
--- NOTE | ~2024-05-31 | MM_ITS ---
EXAMINATION: DXA BONE DENSITY AXIAL HISTORY: Abnormal serum enzyme levels TECHNIQUE: [employer] Dual energy absorptiometry (DEXA) of the lumbar spine, total left hip, and femoral neck was performed. COMPARISON: There are no prior studies for comparison. FINDINGS: The bone mineral density of the lumbar spine is 1.309 with a T-score of 0.9, and a Z-score of 0.4. The bone mineral density of the left total hip is 1.033 with a T-score of -0.5, and a Z-score of -0.5. The bone mineral density of the left femoral neck is 0.957 with a T-score of -0.9, and a Z-score of -0.6. MM/XR DEXA axial skeleton IMPRESSION: Based on bone mineral density, and according to World Health Organization (WHO) criteria, the diagnosis is consistent with normal bone mineral density. All bone density values are in grams per centimeter squared (g/cm2). Statistically, 68% of repeat scans fall within 1 SD (+/- 0.010 g/cm2 for AP spine L1-L4) and 1 SD (+/- 0.012 g/cm2 for femur total) FRAX is a trademark of the [employer] [facility] Met[facility] [employer] Disease, a World Health Organization (WHO) Collaborating Center. Electronically signed by: Brennan Parra MD 05/31/2024 09:41 AM [facility] [place], [place]
--- OUTSIDE RECORDS SUMMARY | 2024-05-31 08:59 | XMS_ITS | Clinical Summary ---
Author Organization [facility] Address [address] [place] [address] Care Team Providers Care Acting Section Chief Name Role Phone Unavailable Primary Care Provider Unavailabl e Social History Tobacco Use Types Packs/Day Years Used Date Smoking Tobacco: Never Assessed Sex and Gender Information Value Date Recorded Sex Assigned at Not on file Gender Identity Not on file Sexual Orientation Not on file Plan of Treatment Health Maintenance Due Date Last Done Comments Hepatitis C Virus Screening 1970 HIV Screening 1983 DTaP/Tdap/Td Vaccines (1 - Tdap) 1989 Hepatitis B Vaccines (1 of 3 - 19+ 3-dose series) 1989 Pneumococcal Vaccines 50+ (1 of 1 - PCV) 2020 Zoster (Shingles) Vaccine (1 of 2) 2020 COVID-19 Vaccine ( - 2023-2 5 season) 2023 Pneumococcal Vaccine: Pediat sonu (0-5 Years) and At-Risk Patients (6 to 49 Years) Aged Out No longer eligible b ased on patient's age to complete this topic
== END 2024-05-31 08:43 | disposition home or self-care (01) ==
LOC: HO.MAMMO 08:42
PROVIDERS: PCP Nurse Practitioner Family; Visit Provider Nurse Practitioner Family
DX: Z13.820 Encounter for screening for osteoporosis (principal); R74.8 Abnormal levels of other serum enzymes
CPT/HCPCS: 77080

== ENCOUNTER → 2024-05-31 08:45 | Outpatient (BNV) | payer OTHER, SELFPAY | PROVIDERS: PCP Nurse Practitioner Family; Visit Provider Radiology Diagnostic Radiology | DX: E28.39 Other primary ovarian failure (principal) | CPT/HCPCS: 77080 ==

== ENCOUNTER 2024-06-11 15:30 | Outpatient (AMB) | payer OTHER, SELFPAY ==
[2024-06-11 15:40] VITALS: BP 130/82; PULSE 93; TEMP 36.6; O2SAT 95; BMI 32.7
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
--- OUTSIDE RECORDS SUMMARY | 2024-06-11 18:52 | XMS_ITS | Clinical Summary ---
Author Organization [facility] Address [address] [place] [address] Care Team Providers Care Intensive Care Medicine Specialist Name Role Phone Unavailable Primary Care Provider [...]
== END 2024-06-11 16:17 | disposition home or self-care (01) ==
PROVIDERS: PCP Nurse Practitioner Family; Visit Provider Nurse Practitioner Family
DX: F17.210 Nicotine dependence, cigarettes, uncomplicated (principal); T31.30 Burns involving 30-39% of body surface with 0% to 9% third degree burns; E11.9 Type 2 diabetes mellitus without complications; E83.19 Other disorders of iron metabolism; Z13.9 Encounter for screening, unspecified

== ENCOUNTER → 2024-06-11 15:35 | Outpatient (BNVA) | payer OTHER, SELFPAY | PROVIDERS: PCP Nurse Practitioner Family; Visit Provider Nurse Practitioner Family | DX: E11.9 Type 2 diabetes mellitus without complications (principal); E83.19 Other disorders of iron metabolism; T24.302D Burn of third degree of unspecified site of left lower limb, except ankle and foot, subsequent encounter; T24.301D Burn of third degree of unspecified site of right lower limb, except ankle and foot, subsequent encounter; T31.30 Burns involving 30-39% of body surface with 0% to 9% third degree burns; X08.8XXD Exposure to other specified smoke, fire and flames, subsequent encounter; F17.210 Nicotine dependence, cigarettes, uncomplicated | CPT/HCPCS: 83036; 96127 ==

== ENCOUNTER 2024-07-05 10:55 | Outpatient (AMB) | payer OTHER, SELFPAY ==
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
== END 2024-07-05 14:44 | disposition home or self-care (01) ==
LOC: HO.HPS 10:56
PROVIDERS: PCP Nurse Practitioner Family; Referring Provider Nurse Practitioner Family; Visit Provider Physician Assistant Medical
DX: F17.210 Nicotine dependence, cigarettes, uncomplicated (principal)
CPT/HCPCS: G0296

== ENCOUNTER 2024-07-05 11:15 | Outpatient (REF) | payer OTHER, SELFPAY ==
--- OUTSIDE RECORDS SUMMARY | 2024-07-05 13:09 | XMS_ITS | Clinical Summary ---
Author Organization [facility] Address [address] [place] [address] Care Team Providers Care Lead Caster Name Role Phone Unavailable Primary Care Provider [...] (1 of 3 - 19+ 3-dose series) 03/03 Pneumococcal Vaccines 50+ (1 of 1 - PCV) 2020 Zoster (Shingles) Vaccine (1 of 2) 2020 COVID-19 Vaccine (1 - 2023- season) 2023
== END 2024-07-05 11:16 | disposition home or self-care (01) ==
LOC: HO.CT 11:15
PROVIDERS: PCP Nurse Practitioner Family; Visit Provider Physician Assistant Medical
DX: Z12.2 Encounter for screening for malignant neoplasm of respiratory organs (principal); F17.210 Nicotine dependence, cigarettes, uncomplicated
CPT/HCPCS: 71271

== ENCOUNTER → 2024-07-05 11:19 | Outpatient (BNV) | payer OTHER, SELFPAY | PROVIDERS: PCP Nurse Practitioner Family; Visit Provider Nuclear Medicine | DX: F17.210 Nicotine dependence, cigarettes, uncomplicated (principal) | CPT/HCPCS: 71271 ==

== ENCOUNTER 2024-08-01 12:57 | Outpatient (REF) | payer OTHER, SELFPAY ==
--- NOTE | ~2024-08-01 | US_ITS ---
CLINICAL HISTORY: R35.1 - Nocturia US Renal Comparison: None Findings: Right kidney normal size and echotexture, 11.9 cm length. Left kidney normal size and echotexture, 12.2 cm length. No hydronephrosis of either kidney. Normal color Doppler. IMPRESSION: 1. Normal kidneys. This document has been electronically signed by: Nahid Nixon MD on 08/01/2024 22:03:51
--- OUTSIDE RECORDS SUMMARY | 2024-08-01 15:25 | XMS_ITS | Clinical Summary ---
Author Organization [facility] Address [address] [place] [address] Care Team Providers Care Urology Physician Name Role Phone Unavailable Primary Care Provider Unavailabl e Social History Tobacco Use Types Packs/Day Years Used Date Smoking Tobacco: Never Assessed Comments Unknown Sex and Gender Information Value Date Recorded Sex Assigned at Not on file Legal Sex Female 7:12 AM EDT Gender Identity Not on file Sexual Orientation [...] of 2) 2020 COVID-19 Vaccine (1 - season) 2023
[2024-08-01 16:26] LABS: Alanine Aminotransferase 53 U/L (0-40); Albumin Level 4.3 g/dL (3.5-5.0); Alkaline Phosphatase 108 U/L (39-117); Anion Gap 12 (12-20); Aspartate Amino Transferase 30 U/L (5-37); Bilirubin Total 0.5 mg/dL (0.0-1.0); Blood Urea Nitrogen 11 mg/dL (9-16); Calcium 9.3 mg/dL (8.4-10.2); Carbon Dioxide 26 mmol/L (22-29); Chloride 105 mmol/L (96-108); Estimated Glomerular Filt Rate > 60; Glucose Random 125 mg/dL (60-115); Magnesium 2.3 mg/dL (1.6-2.6); Phosphorus 2.7 mg/dL (2.7-4.5); Potassium 3.7 mmol/L (3.3-5.1); Sodium 139 mmol/L (135-145)
[2024-08-01 16:45] LABS: Prostate Specific Antigen 0.36 ng/mL (<0.05-4.0)
[2024-08-01 16:52] LABS: Creatinine Urine 350.54 mg/dL; Microalbum/Creatinine Ratio Ur 7.7 ug/mg cr (<30)
[2024-08-01 16:55] LABS: Parathyroid Hormone Intact 83.1 pg/mL (8.7-77.1)
[2024-08-01 17:00] LABS: Folate 6.5 ng/mL (> or = 4.0); Vitamin B12 402 pg/mL (200-900)
[2024-08-02 11:48] LABS: Ceruloplasmin 23 mg/dL (14-30)
[2024-08-02 15:59] LABS: Calcium, Ionized 5.1 mg/dL (4.7-5.5)
[2024-08-04 23:12] LABS: Zinc 72 mcg/dL (60-130)
[2024-08-05 14:03] LABS: Vitamin B6 11.5 ng/mL (2.1-21.7)
[2024-08-05 22:13] LABS: Arsenic, Blood <3 mcg/L (<23); Lead, Blood <1.0 mcg/dL (<3.5); Mercury, Blood <4 mcg/L (<=10)
== END 2024-08-01 12:58 | disposition home or self-care (01) ==
LOC: HO.HMGCX 12:57
PROVIDERS: PCP Nurse Practitioner Family; Referring Provider Nurse Practitioner Family; Visit Provider Nurse Practitioner Family
DX: R35.1 Nocturia (principal); N39.43 Post-void dribbling; R39.12 Poor urinary stream; T31.30 Burns involving 30-39% of body surface with 0% to 9% third degree burns; R79.89 Other specified abnormal findings of blood chemistry; E83.19 Other disorders of iron metabolism; R74.8 Abnormal levels of other serum enzymes; T24.309 Burn of third degree of unspecified site of unspecified lower limb, except ankle and foot; Z12.5 Encounter for screening for malignant neoplasm of prostate
CPT/HCPCS: 36415; 76770; 80053; 81256; 82043; 82175; 82330; 82390; 82570; 82607; 82746; 83655; 83735; 83825; 83970; 84100; 84153; 84207; 84630

== ENCOUNTER → 2024-08-01 13:08 | Outpatient (BNV) | payer OTHER, SELFPAY | PROVIDERS: PCP Nurse Practitioner Family; Referring Provider Nurse Practitioner Family; Visit Provider Radiology Diagnostic Radiology | DX: R35.1 Nocturia (principal) | CPT/HCPCS: 76770 ==

== ENCOUNTER 2024-08-07 13:30 | Outpatient (REF) | payer OTHER, SELFPAY ==
--- NOTE | ~2024-08-07 | US_ITS ---
CLINICAL HISTORY: NOCTURIA, POOR URINARY STREAM US kidneys and bladder Comparison: None Findings: The urinary bladder is unremarkable. Prevoid volume T4 mL. Post void volume 9 mL. Bilateral ureteral jets visualized. Impression: No significant abnormalities. This document has been electronically signed by: Kai Huang MD on 08/07/2024 18:35:26
--- OUTSIDE RECORDS SUMMARY | 2024-08-07 14:46 | XMS_ITS | Clinical Summary ---
Author Organization [facility] Address [address] [place] [address] Care Team Providers Care Pipe Recovery Specialist Name Role Phone Unavailable Primary Care [...]
== END 2024-08-07 13:31 | disposition home or self-care (01) ==
LOC: HO.HMGCX 13:30
PROVIDERS: PCP Nurse Practitioner Family; Visit Provider Nurse Practitioner Family
DX: R35.1 Nocturia (principal); N39.43 Post-void dribbling; R39.12 Poor urinary stream
CPT/HCPCS: 76857

== ENCOUNTER → 2024-08-07 13:33 | Outpatient (BNV) | payer OTHER, SELFPAY | PROVIDERS: PCP Nurse Practitioner Family; Visit Provider Radiology Diagnostic Radiology | DX: R35.1 Nocturia (principal) | CPT/HCPCS: 76857 ==

== ENCOUNTER 2024-08-12 15:30 | Outpatient (AMB) | payer OTHER, SELFPAY ==
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
--- OUTSIDE RECORDS SUMMARY | 2024-08-12 15:33 | XMS_ITS | Clinical Summary ---
Author Organization [facility] Address [address] [place] [address] Care Team Providers Care Graphic Design Specialist Name Role Phone Unavailable Primary Care [...]
== END 2024-08-12 16:04 | disposition home or self-care (01) ==
LOC: HO.HUSH 15:31
PROVIDERS: PCP Nurse Practitioner Family; Visit Provider Nurse Practitioner Family
DX: R35.1 Nocturia (principal); N39.43 Post-void dribbling; R39.12 Poor urinary stream; Z13.9 Encounter for screening, unspecified
CPT/HCPCS: 99214

== ENCOUNTER → 2024-08-12 15:30 | Outpatient (BNVA) | payer OTHER, SELFPAY | PROVIDERS: PCP Nurse Practitioner Family; Visit Provider Nurse Practitioner Family | DX: R35.1 Nocturia (principal); N39.43 Post-void dribbling; R39.12 Poor urinary stream | CPT/HCPCS: 81003 ==

== ENCOUNTER → 2024-10-08 13:15 | Outpatient (BNV) | payer OTHER, SELFPAY | PROVIDERS: PCP Nurse Practitioner Family; Referring Provider Nurse Practitioner Family; Visit Provider Internal Medicine | DX: R77.8 Other specified abnormalities of plasma proteins (principal) | CPT/HCPCS: 99204 ==

== ENCOUNTER 2024-10-14 16:01 | Outpatient (REF) | payer OTHER, SELFPAY ==
--- NOTE | ~2024-10-14 | CT_ITS ---
CLINICAL HISTORY: F17.210 - Nicotine dependence, cigarettes, uncomplicated --- Additional Notes or Special Instructions: 3m repeat LDCT - 4.6x10mm nodule RML on [address] lung cancer screening (LDCT) Comparison: CT/SR - CT LUNG SCREENING - 07/05/24 11:23 EDT Technique: Axial CT images of the chest using low-dose technique. Referring provider counseled the patient on shared decision-making for LDCT screening. Additional counseling was provided on smoking cessation. Effective radiation dose total: DLP 73.9 mGycm, CTDIvol 1.9 mGy. Findings: Lung: No emphysema. No acute process. No suspicious pleural disease. Wedge-shaped perifissural nodule 7 x 4 mm along the minor fissure on the right series 4, image 80, mildly smaller. No new pulmonary nodule. Coronary artery calcifications: Limited upper abdomen: Mild hepatic steatosis. Other: Degenerative changes of the thoracic spine. Impression: LungRADS 2 - Benign Appearance: Continue annual screening with low dose Chest CT in 12 months. ##L2## Category 1: Normal; continue annual screening Category 2: Benign appearance or behavior, continue annual screening Category 3: Probably benign, [address] recommended Category 4A: Suspicious, [address] recommended; may consider PET/CT Category 4B: Suspicious, Additional diagnostics and/or tissue sampling recommended Category 4X: Suspicious, Additional diagnostics and/or tissue sampling recommended Category 0: Recalls (incomplete screen due to Incomplete coverage, Noise, Respiratory motion, Expiration, Obscured by acute abnormality) This document has been electronically signed by: Darlyn Beach MD on 10/15/2024 14:42:51
--- OUTSIDE RECORDS SUMMARY | 2024-10-14 16:57 | XMS_ITS | Clinical Summary ---
Author Organization [facility] Address [address] [place] [address] Care Team Providers Care Beater Operator Name Role Phone Unavailable Primary Care Provider [...]
== END 2024-10-14 16:02 | disposition home or self-care (01) ==
LOC: HO.CT 16:01
PROVIDERS: PCP Nurse Practitioner Family; Visit Provider Physician Assistant Medical
DX: R91.1 Solitary pulmonary nodule (principal); F17.210 Nicotine dependence, cigarettes, uncomplicated
CPT/HCPCS: 71250

== ENCOUNTER → 2024-10-14 16:07 | Outpatient (BNV) | payer OTHER, SELFPAY | PROVIDERS: PCP Nurse Practitioner Family; Visit Provider Radiology Diagnostic Radiology | DX: F17.210 Nicotine dependence, cigarettes, uncomplicated (principal) | CPT/HCPCS: 71250 ==

== ENCOUNTER 2024-11-07 16:04 | Outpatient (AMB) | payer OTHER, SELFPAY ==
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
--- OUTSIDE RECORDS SUMMARY | 2024-11-07 16:07 | XMS_ITS | Encounter Summary ---
Author Organization [facility] Address [address] [place] [phone] Phone Care Team Providers Care Binder And Box Builder Name Role Phone Michael Lino SHERIFFS DETECTIVE Primary Care Provider + Encounter Details Date Type Department Care Team (Late st Contact Info) Description 09/10/2020 Procedure Pass [facility] [address] [place] [address] Social History Tobacco Use Types Packs/Day Years Used Date Smoking Tobacco: Every Day Cigarettes 1.5 40 Smokeless Tobacco: Never Comments:pt smoking since 11 yo Sex and Gender Information Value Date Recorded Sex Assigned at Not on file Legal Sex Male 2:08 AM EDT Gender Identity Not on file Sexual Orientation Not on file documented as of this encounter Plan of Treatment Not on file documented as of this encounter Visit Diagnoses Not on filedocumented in this encounter Care Teams Binder And Box Builder Relationship Specialty Start Date End Date Michael Lino NP [address] [facility] [place] [id number] [email or web address] PCP - General Family Medicine 09/01/20 documented as of this encounter Additional Source Comments The information contained in this document represents components of the legal health record. It is not the complete legal health record.[facility]
--- OUTSIDE RECORDS SUMMARY | 2024-11-07 16:07 | XMS_ITS | Clinical Summary ---
Author Organization [facility] Address [address] [place] [address] Care Team Providers Care Pot Lining Supervisor Name Role Phone Unavailable Primary Care Provider [...]
== END 2024-11-07 16:54 | disposition home or self-care (01) ==
LOC: HO.HUSH 16:05
PROVIDERS: PCP Nurse Practitioner Family; Visit Provider Nurse Practitioner Family
DX: R35.1 Nocturia (principal); N39.43 Post-void dribbling; R39.12 Poor urinary stream
CPT/HCPCS: 99214

== ENCOUNTER 2024-12-12 15:59 | Outpatient (AMB) | payer OTHER, SELFPAY ==
[2024-12-12 16:10] VITALS: BP 124/84; PULSE 102; RESP 16; TEMP 36.8; O2SAT 98; BMI 33.1
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
--- OUTSIDE RECORDS SUMMARY | 2024-12-12 18:52 | XMS_ITS | Encounter Summary ---
Author Organization [facility] Address [address] [facility] [address] [place] [phone] Phone Care Team Providers Care Retail Client Solutions Analyst Name Role Phone Michael Lino DATA COLLECTION INTERVIEWER Primary Care Provider + Encounter Details Date Type Department Care Team (Late st Contact Info) Description 09/18/2020 Procedure Pass [facility] Periop [address] [place] [address] Social History Tobacco Use Types Packs/Day Years [...] on filedocumented in this encounter Care Teams Retail Client Solutions Analyst Relationship Specialty Start Date End Date Michael Lino NP [address] [facility] [address] [place] [address] PCP - General Family Medicine 09/01/20 documented as of this encounter Additional Source Comments The information contained in this document represents components of the legal health record. It is not the complete legal health record.[facility]
--- OUTSIDE RECORDS SUMMARY | 2024-12-12 18:52 | XMS_ITS | Encounter Summary ---
Author Organization [facility] Address [address] [place] [phone] Phone Care Team Providers Care Chemical Operations And Training Name Role Phone Michael Lino EXERCISE RIDER Primary Care Provider + Reason for Visit * Reason Comments Medication Refill Encounter Details Date Type Department Care Team (Late st Contact Info) Description 11/26/2020 Refill [facility] Ayoub and Trauma [address] [facility] [address] [place] [address] Kailyn Anthony PA-C [address] [place] [address] [email or web address] Medication Refill Social History Tobacco Use Types Packs/Day Years [...] on filedocumented in this encounter Care Teams Chemical Operations And Training Relationship Specialty Start Date End Date Michael Lino NP [address] [facility] [address] [place] [address] PCP - General Family Medicine 09/01/20 documented as of this encounter Additional Source Comments The information contained in this document represents components of the legal health record. It is not the complete legal health record.[facility]
--- OUTSIDE RECORDS SUMMARY | 2024-12-12 18:52 | XMS_ITS | Encounter Summary ---
Author Organization [facility] Address [address] [facility] [address] [place] [phone] Phone Care Team Providers Care Aluminum Sheet Cutter Name Role Phone Michael Lino ANTIQUE JEWELRY REPAIRER Primary Care Provider + Encounter Details Date Type Department Care Team (Late st Contact Info) Description 09/10/2020 Procedure Pass [facility] Periop [address] [place] [address] Social History Tobacco Use Types Packs/Day Years [...] on filedocumented in this encounter Care Teams Aluminum Sheet Cutter Relationship Specialty Start Date End Date Michael Lino NP [address] [facility] [address] [facility] [address] [place] [address] PCP - General Family Medicine 09/01/20 documented as of this encounter Additional Source Comments The information contained in this document represents components of the legal health record. It is not the complete legal health record.[facility]
--- OUTSIDE RECORDS SUMMARY | 2024-12-12 18:52 | XMS_ITS | Encounter Summary ---
Author Organization [facility] Address [address] [facility] [address] [place] [address] Phone Care Team Providers Care Mystery Shopper Name Role Phone Michael Lino TOOL AND DIE REPAIRER Primary Care Provider + Encounter Details Date Type Department Care Team (Late st Contact Info) Description 09/07/2020 Procedure Pass [facility] Periop [address] [place] [address] Social History Tobacco Use Types Packs/Day Years [...] on filedocumented in this encounter Care Teams Mystery Shopper Relationship Specialty Start Date End Date Michael Lino NP [address] [facility] [address] [place] [address] PCP - General Family Medicine 09/01/20 documented as of this encounter Additional Source Comments The information contained in this document represents components of the legal health record. It is not the complete legal health record.[facility]
--- OUTSIDE RECORDS SUMMARY | 2024-12-12 18:52 | XMS_ITS | Clinical Summary ---
Author Organization [facility] Address [address] [place] [address] Care Team Providers Care Cardiopulmonary Physical Therapist Name Role Phone Unavailable Primary Care Provider [...] 2) 2020 COVID-19 Vaccine (1 - season) 2024
--- OUTSIDE RECORDS SUMMARY | 2024-12-12 18:52 | XMS_ITS | Encounter Summary ---
Author Organization [facility] Address [address] [place] [address] [place] [address] Phone Care Team Providers Care Nursing Department Chairperson Name Role Phone Michael Lino NP Primary Care Provider + Encounter Details Date Type Department Care Team (Latest Contact Info) Description 09/03/2020 Transcribe Orders [facility] Echocardiography [address] [place] [address] Ida Rivera [address] [place] [address] [email or web address] Chest pain, unspecified type (Primary Dx) Social History Tobacco Use Types Packs/Day Years [...] on file documented as of this encounter Procedures Procedure Name Priority Date/Time Associated Diagnosis Comments ECG 12-LEAD Routine 09/01/2020 12:02 PM EDT Chest pain, unspecified type ECG 12-LEAD Routine 09/01/2020 7:58 AM EDT Chest pain, unspecified type documented in this encounter Results * ECG 12-LEAD (09/01/2020 12:02 PM EDT) Systolic Blood Pressure 109 mmHg [facility] Diastolic Blood Pressure 61 mmHg [facility] Ventricular Rate EKG/MIN 139 BPM [facility] Atrial Rate 139 BPM [facility] ND Interval 148 ms [facility] QRS Duration 66 ms [facility] QT Interval 270 ms [facility] QTC Interval 410 ms [facility] P [place] 47 degrees [facility] R Wave [place] 54 degrees [facility] T Wave [place] 23 degrees [facility] 09/01/2020 12:0 2 PM EDT Narrative [facility] - 09/07/2020 11:18 AM EDT Sinus tachycardia Otherwise normal ECG When compared with ECG of 01-SEP-2020 07:58, (unconfirmed) No significant change was found Martir SANCHEZ ECG ORDERABLES Final Result Performing Organization Address [facility] de Phone Number [facility] * ECG 12-LEAD (09/01/2020 7:58 AM EDT) Systolic Blood Pressure 156 mmHg [facility] Diastolic Blood Pressure 104 mmHg [facility] Ventricular Rate EKG/MIN 132 BPM [facility] Atrial Rate 132 BPM [facility] ND Interval 164 ms [facility] QRS Duration 64 ms [facility] QT Interval 276 ms [facility] QTC Interval 408 ms [facility] P [place] 48 degrees [facility] R Wave [place] 45 degrees [facility] T Wave [place] 57 degrees [facility] 09/01/2020 7:58 AM EDT Narrative [facility] - 09/07/2020 11:14 AM EDT Sinus tachycardia Otherwise normal ECG When compared with ECG of 01-SEP-2020 05:43, (unconfirmed) No significant change was found Martir SANCHEZ ECG ORDERABLES Final Result [facility] documented in this encounter Visit Diagnoses Diagnosis Chest pain, unspecified type- Primary documented in this encounter Care Teams Nursing Department Chairperson Relationship Specialty Start Date End Date Michael Lino NP [facility] [place] [address] PCP - General Family Medicine 09/01/20 documented as of this encounter Additional Source Comments The information contained in this document represents components of the legal health record. It is not the complete legal health record.[facility]
--- OUTSIDE RECORDS SUMMARY | 2024-12-12 18:52 | XMS_ITS | Encounter Summary ---
Author Organization [facility] Address [address] [facility] [address] [place] [address] Phone Care Team Providers Care Rim Fire Charger Operator Name Role Phone Michael Lino NEON TECHNICIAN Primary Care Provider + Encounter Details Date Type Department Care Team (Late st Contact Info) Description 09/07/2020 Prep for Surgery [facility] [address] [place] [address] Kailyn Anthony PA-C [address] [place] [address] [email or web address] Social History Tobacco Use Types Packs/Day Years [...] on filedocumented in this encounter Care Teams Rim Fire Charger Operator Relationship Specialty Start Date End Date Michael Lino NP [address] [place] [address] PCP - General Family Medicine 09/01/20 documented as of this encounter Additional Source Comments The information contained in this document represents components of the legal health record. It is not the complete legal health record.[facility]
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
== END 2024-12-12 17:02 | disposition home or self-care (01) ==
LOC: HO.HMCC 16:00
PROVIDERS: PCP Nurse Practitioner Family; Visit Provider Nurse Practitioner Family
DX: Z12.11 Encounter for screening for malignant neoplasm of colon (principal); E11.9 Type 2 diabetes mellitus without complications; T14.8XXA Other injury of unspecified body region, initial encounter; G89.4 Chronic pain syndrome; E55.9 Vitamin D deficiency, unspecified

== ENCOUNTER → 2024-12-12 15:59 | Outpatient (BNVA) | payer OTHER, SELFPAY | PROVIDERS: PCP Nurse Practitioner Family; Visit Provider Nurse Practitioner Family | DX: E11.9 Type 2 diabetes mellitus without complications (principal); G89.4 Chronic pain syndrome; E55.9 Vitamin D deficiency, unspecified; G62.9 Polyneuropathy, unspecified; Z13.31 Encounter for screening for depression; Z13.39 Encounter for screening examination for other mental health and behavioral disorders | CPT/HCPCS: 96127 ==

== ENCOUNTER 2025-02-03 15:02 | Outpatient (AMB) | payer OTHER, SELFPAY ==
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
== END 2025-02-03 15:43 | disposition home or self-care (01) ==
LOC: HO.HUSH 15:03
PROVIDERS: PCP Nurse Practitioner Family; Visit Provider Nurse Practitioner Family
DX: R35.1 Nocturia (principal); N39.43 Post-void dribbling; R39.12 Poor urinary stream; Z13.9 Encounter for screening, unspecified
CPT/HCPCS: 99213

== ENCOUNTER → 2025-02-03 15:02 | Outpatient (BNVA) | payer OTHER, SELFPAY | PROVIDERS: PCP Nurse Practitioner Family; Visit Provider Nurse Practitioner Family | DX: R39.12 Poor urinary stream (principal) | CPT/HCPCS: 51798; 81003 ==

== ENCOUNTER 2025-03-13 09:16 | Outpatient (REF) | payer OTHER, SELFPAY ==
[2025-03-13 10:20] LABS: MANUAL DIFF FLAG NO
[2025-03-13 10:28] LABS: Hematocrit 49.4 % (42.0-52.0); Hemoglobin 17.0 g/dl (14.0-18.0); Imm Gran Abs Auto 0.02 X10*3/uL (0.00-0.03); Imm Gran Pct Auto 0.2 % (0.0-0.4); Lymphocytes Absolute Auto 2.6 X10*3/uL (1.2-4.9); Mean Corpuscular HGB Conc 34.4 g/dl (31.0-36.0); Mean Corpuscular Hemoglobin 32.8 pg (27.0-33.0); Mean Corpuscular Volume 95.4 fL (80.0-98.0); NRBC Abs Auto 0.000 X10*3/uL (0.0-0.012); NRBC Pct Auto 0.0 /100WBC (0.0-0.2); Platelet Count 209 X10*3/uL (160-400); Red Blood Count 5.18 X10*6/uL (4.60-5.80); White Blood Count 10.5 X10*3/uL (4.8-10.8)
[2025-03-13 11:20] LABS: Alanine Aminotransferase 37 U/L (0-40); Albumin Level 4.4 g/dL (3.5-5.0); Alkaline Phosphatase 128 U/L (39-117); Anion Gap 13 (12-20); Aspartate Amino Transferase 32 U/L (5-37); Blood Urea Nitrogen 10 mg/dL (9-16); Calcium 9.1 mg/dL (8.4-10.2); Carbon Dioxide 25 mmol/L (22-29); Chloride 106 mmol/L (96-108); Cholesterol 161 mg/dL (<200); Estimated Glomerular Filt Rate > 60; HDL Cholesterol 41 mg/dL (>40); Potassium 4.2 mmol/L (3.3-5.1); Sodium 140 mmol/L (135-145); Total Protein 7.0 g/dL (6.5-8.0); Triglycerides 116 mg/dL (<150)
[2025-03-13 13:58] LABS: Appearance Urine Clear; Glucose Urine UA Negative (Negative); PH 6.5 (5.0-9.0); Specific Gravity - Urine 1.010 (1.005-1.025)
[2025-03-13 14:13] LABS: Cannabinoid Screen Urine Not Detected (Not Detect)
== END 2025-03-13 09:17 | disposition home or self-care (01) ==
LOC: HO.HMGCLDS 09:16
PROVIDERS: PCP Nurse Practitioner Family; Visit Provider Nurse Practitioner Family
DX: E11.9 Type 2 diabetes mellitus without complications (principal); E55.9 Vitamin D deficiency, unspecified; T14.8XXA Other injury of unspecified body region, initial encounter; G89.4 Chronic pain syndrome
CPT/HCPCS: 80053; 80061; 80307; 81003; 82306; 83036; 84443; 85025

== ENCOUNTER 2025-03-17 15:59 | Outpatient (AMB) | payer OTHER, SELFPAY ==
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
[2025-03-17 16:26] VITALS: BP 118/68; PULSE 97; O2SAT 97
--- OUTSIDE RECORDS SUMMARY | 2025-03-17 22:22 | XMS_ITS | Encounter Summary ---
Author Organization [facility] Address [address] [facility] [address] [place] [address] Phone Care Team Providers Care Window Clerk Name Role Phone Michael Lino ROOFING SUPERINTENDENT Primary Care Provider + Encounter Details Date Type Department Care Team (Late st Contact Info) Description 09/10/2020 Procedure Pass [facility] Periop [address] [place] [address] Social History Tobacco Use Types Packs/Day Years [...] on filedocumented in this encounter Care Teams Window Clerk Relationship Specialty Start Date End Date Michael Lino NP [address] [facility] [address] [place] [address] PCP - General Family Medicine 09/01/20 documented as of this encounter Additional Source Comments The information contained in this document represents components of the legal health record. It is not the complete legal health record.[facility]
--- OUTSIDE RECORDS SUMMARY | 2025-03-17 22:22 | XMS_ITS | Encounter Summary ---
Author Organization [facility] Address [address] [facility] [address] [place] [address] Phone Care Team Providers Care Loan Manager Name Role Phone Michael Lino SLEEVE SEPARATOR Primary Care Provider + Encounter Details Date Type Department Care Team (Late st Contact Info) Description 09/07/2020 Prep for Surgery [facility] [address] [place] [address] Kailyn Anthony PA-C [address] [place] [address] [email or web address] Social History Tobacco Use Types Packs/Day Years [...] on filedocumented in this encounter Care Teams Loan Manager Relationship Specialty Start Date End Date Michael Lino NP [address] [facility] [place] [address] PCP - General Family Medicine 09/01/20 documented as of this encounter Additional Source Comments The information contained in this document represents components of the legal health record. It is not the complete legal health record.[facility]
--- OUTSIDE RECORDS SUMMARY | 2025-03-17 22:24 | XMS_ITS | Encounter Summary ---
Author Organization [facility] Address [address] [place] [address] [place] [address] Phone Care Team Providers Care Boiler Tender Name Role Phone Michael Lino NP Primary Care Provider + Encounter Details Date Type Department Care Team (Latest Contact Info) Description 09/03/2020 Transcribe Orders [facility] Echocardiography [address] [place] [address] Ida Rivera [address] [place] [address] [email or web address] Chest pain, unspecified type (Primary Dx) Social [...] BPM [facility] Atrial Rate 139 BPM [facility] MO Interval 148 ms [facility] QRS Duration 66 ms [facility] QT Interval 270 ms [facility] QTC Interval 410 ms [facility] P Lawn 47 degrees [facility] R Wave Lawn 54 degrees [facility] T Wave Lawn 23 degrees [facility] 09/01/2020 12:0 2 PM EDT Narrative [facility] - 09/07/2020 11:18 AM EDT Sinus tachycardia Otherwise normal ECG When compared with ECG of 01-SEP-2020 07:58, (unconfirmed) No significant change was found Martir SANCHEZ ECG ORDERABLES Final Result Performing Organization Address [facility] de Phone Number [facility] * ECG 12-LEAD (09/01/2020 7:58 AM EDT) Systolic Blood Pressure 156 mmHg [facility] Diastolic Blood Pressure 104 mmHg [facility] Ventricular Rate EKG/MIN 132 BPM [facility] Atrial Rate 132 BPM [facility] MO Interval 164 ms [facility] QRS Duration 64 ms [facility] QT Interval 276 ms [facility] QTC Interval 408 ms [facility] P Lawn 48 degrees [facility] R Wave Lawn 45 degrees [facility] T Wave Lawn 57 degrees [facility] 09/01/2020 7:58 AM EDT Narrative [facility] - 09/07/2020 11:14 AM EDT Sinus tachycardia Otherwise normal ECG When compared with ECG of 01-SEP-2020 05:43, (unconfirmed) No significant change was found Martir SANCHEZ ECG ORDERABLES Final Result [facility] documented in this encounter Visit Diagnoses Diagnosis Chest pain, unspecified type- Primary documented in this encounter Care Teams Boiler Tender Relationship Specialty Start Date End Date Michael Lino NP [facility] [place] [address] PCP - General Family Medicine 09/01/20 documented as of this encounter Additional Source Comments The information contained in this document represents components of the legal health record. It is not the complete legal health record.[facility]
--- OUTSIDE RECORDS SUMMARY | 2025-03-17 22:24 | XMS_ITS | Encounter Summary ---
Author Organization [facility] Address [address] [facility] [address] [place] [address] Phone Care Team Providers Care After School Program Assistant Name Role Phone Michael Lino VP HR DIVERSITY Primary Care Provider + Encounter Details Date Type Department Care Team (Late st Contact Info) Description 09/07/2020 Procedure Pass [facility] Periop [address] [place] [address] Social History Tobacco Use Types Packs/Day Years [...] on filedocumented in this encounter Care Teams After School Program Assistant Relationship Specialty Start Date End Date Michael Lino NP [address] [facility] [address] [place] [address] PCP - General Family Medicine 09/01/20 documented as of this encounter Additional Source Comments The information contained in this document represents components of the legal health record. It is not the complete legal health record.[facility]
--- OUTSIDE RECORDS SUMMARY | 2025-03-17 22:24 | XMS_ITS | Encounter Summary ---
Author Organization [facility] Address [address] [facility] [address] [place] [address] Phone Care Team Providers Care Psychiatric Orderly Name Role Phone Michael Lino SHIRT HEMMER Primary Care Provider + Encounter Details Date Type Department Care Team (Late st Contact Info) Description 09/18/2020 Procedure Pass [facility] Periop [address] [place] [address] Social History Tobacco Use Types Packs/Day Years [...] on filedocumented in this encounter Care Teams Psychiatric Orderly Relationship Specialty Start Date End Date Michael Lino NP [address] [facility] [address] [place] [address] PCP - General Family Medicine 09/01/20 documented as of this encounter Additional Source Comments The information contained in this document represents components of the legal health record. It is not the complete legal health record.[facility]
--- OUTSIDE RECORDS SUMMARY | 2025-03-17 22:24 | XMS_ITS | Clinical Summary ---
Author Organization [facility] Address [address] [address] Phone Care Team Providers Care Trolley Car Operator Name Role Phone Michael Lino NP Primary [...] INFLUENZA VACCINE (#1) 2024 COVID-19 VACCINE ( - season) 2024 08/02/2020, 07/12/2020 RSV VACCINE (1 - 1-dose 75+ series) 2045 HEPATITIS A VACCINES Aged Out No long [...] Date/Time Associated Diagnosis Comments BASIC METABOLIC PANEL (BMP) Routine 09/23/2020 7:36 AM EDT from Last 3 Months or Most Recently Relevant to Health Maintenance Results * (ABNORMAL) Basic metabolic panel (09/23/2020 7:36 AM EDT) SODIUM 134(L) 136 - 145 mmol/L [facility] POTASSIUM 4.0 3.4 - 5.1 mmol/L [facility] CHLORIDE 101 98 - 107 mmol/L [facility] CO2 23 22 - 31 mmol/L [facility] BUN 10 6 - 23 mg/dL [facility] CREATININE 0.68 0.50 - 1.20 mg/dL [facility] GLUCOSE 119(H) 70 - 100 mg/dL [facility] CALCIUM 8.1(L) 8.8 - 10.7 mg/dL [facility] EGFR 111 >59 mL/min/1.7 3m2 [facility] Comment:Estimated glomerular filtration rate calculated using the CKD-EPI equation. ANION GAP 10 7 - 17 mmol/L [facility] Blood 09/23/2020 7:36 AM EDT 09/23/2020 8:05 AM EDT us Agnes Pennington MD LAB BLOOD BKR ORDERABLES Final Result Performing Organization Address City/State/[facility] Co de Phone Number [facility] [address] [place] [phone] from Last 3 Months or Most Recently Relevant to Health Maintenance Insurance [facility] [employer] PLANS DIRECT DIRECT DIRECT DIRECT DIRECT DIRECT PLANS DIRECT [facility] PLANS DIRECT Advance Directives For more information, please contact: [phone] (9AM - 5PM [facility], Monday-Monday) Documents on File Type Date Recorded Patient Mounting Inspector Expl anation Healthcare Proxy 09/22/2020 4:24 PM * Full Code (Latest Code Status on File) Date Activated Date Inactivated Comments 09/01/2020 7:56 AM Question Answer Comments Code Status Confirmed With: Patient Care Teams Trolley Car Operator Relationship Specialty Start Date End Date Michael Lino NP [address] [facility] [place] [address] PCP - General Family Medicine 09/01/20 Additional Source Comments The information contained in this document represents components of the legal health record. It is not the complete legal health record.[facility]
--- OUTSIDE RECORDS SUMMARY | 2025-03-17 22:24 | XMS_ITS | Encounter Summary ---
Author Organization [facility] Address [address] [place] [phone] Phone Care Team Providers Care Route Deliverer Name Role Phone Michael Lino [employer]ATH[employer]ODUCTS SUPERVISOR Primary Care Provider + Reason for Visit * Reason Comments Medication Refill Encounter Details Date Type Department Care Team (Late st Contact Info) Description 11/26/2020 Refill [facility] Ayoub and Trauma [address] [facility] [address] [place] [address] Kailyn Anthony PA-C [address] [place] [address] [email or web address] Medication Refill Social History Tobacco Use Types [...] on filedocumented in this encounter Care Teams Route Deliverer Relationship Specialty Start Date End Date Michael Lino NP [address] [facility] [address] [place] [address] PCP - General Family Medicine 09/01/20 documented as of this encounter Additional Source Comments The information contained in this document represents components of the legal health record. It is not the complete legal health record.[facility]
--- OUTSIDE RECORDS SUMMARY | 2025-03-17 22:24 | XMS_ITS | Clinical Summary ---
Author Organization [facility] Address [address] [place] [address] Care Team Providers Care Rotary Engine Assembler Name Role Phone Unavailable Primary Care Provider [...] of 2) 2020 COVID-19 Vaccine (1 - 2024- season) 2024 RSV Vaccine 50 years and old er and Patients (1 - 1-dose 75+ series) 2045
== END 2025-03-17 17:00 | disposition home or self-care (01) ==
LOC: HO.HMCC 16:00
PROVIDERS: PCP Nurse Practitioner Family; Visit Provider Nurse Practitioner Family
DX: Z00.00 Encounter for general adult medical examination without abnormal findings (principal); E11.9 Type 2 diabetes mellitus without complications; E55.9 Vitamin D deficiency, unspecified; H61.21 Impacted cerumen, right ear; Z12.5 Encounter for screening for malignant neoplasm of prostate

== ENCOUNTER → 2025-03-17 15:59 | Outpatient (BNVA) | payer OTHER, SELFPAY | PROVIDERS: PCP Nurse Practitioner Family; Visit Provider Nurse Practitioner Family | DX: Z12.5 Encounter for screening for malignant neoplasm of prostate (principal); H61.21 Impacted cerumen, right ear; E11.9 Type 2 diabetes mellitus without complications; E55.9 Vitamin D deficiency, unspecified | CPT/HCPCS: 69209; 96127 ==